=== PATIENT | male | born 1950 | race Caucasian/White ===

== ENCOUNTER 2016-12-24 18:06 | Emergency (ER) | payer MEDICARE ==
[2016-12-24 18:55] LABS: Hematocrit 42.5 % (42.0-52.0); Hemoglobin 14.5 gm/dL (13.5-18.0); Mean Cell Volume 90.4 fl (78-100); Mean Corpuscular Hemoglobin 30.9 pg (27-31); Mean Corpuscular Hgb Conc 34.1 g/dl (32-36); Mean Platelet Volume 9.8 fl (6.0-9.5); Neutrophil # 8.9 K/mm3 (1.3-6.0); Platelet Count 476 K/mm3 (150-450); Red Cell Distribution Width 13.7 % (11.5-14.0); White Blood Count 10.5 K/mm3 (4.0-10.5)
[2016-12-24 18:58] LABS: Prothrombin Time (Patient) 12.1 Seconds (9.4-11.4)
[2016-12-24 19:05] LABS: ALT 27 U/L (19-67); AST 10 U/L (0-48); Albumin * 3.2 gm/dl (3.4-5.0); Alkaline Phosphatase * 72 U/L (50-170); Anion Gap 16.5 mmol/L (6.8-13.8); BUN/Creatinine Ratio 25.9 (9.0-21.6); Bilirubin, Total 0.5 mg/dL (0.0-1.1); Blood Urea Nitrogen 28 mg/dL (6-23); Ca. Corrected For Albumin 9.5 mg/dL (8.4-10.2); Calcium * 9.2 mg/dL (7.9-10.9); Carbon Dioxide 25.3 mmol/L (24-32.6); Chloride 103 mmol/L (97-106); Glucose * 123 mg/dL (70-110); Potassium 3.8 mmol/L (3.4-4.6); Sodium 141 mmol/L (132-142); Total Protein 7.5 gm/dL (6.2-8.2)
[2016-12-24 19:06] LABS: Troponin I Less than 0.017 ng/ml (0.00-0.10)
[2016-12-24 19:12] LABS: INR 1.16 INR (0.90-1.10); Partial Thrombolplastin Time 28.4 Seconds (24-32)
[2016-12-24] MEDS ORDERED: ALBUTEROL SULFATE 2.5 MG/0.5 ML VIAL.NEB IH ONE ×2 (19:29→19:49)
--- NOTE | 2016-12-24 19:30 | ERNOTE ---
Chest Pain/Cardiac HPI Chief Complaint: Chest Pain Time Seen by Provider: 12/24/16 19:23 Source: patient Exam Limitations: no limitations Immunizations: IMMUNIZATION HX Immunizations Up to Date Yes History of Influenza Vaccine Yes Hx Pneumococcal Vaccination Yes Allergies/Adverse Reactions: Allergies No Known Allergies Allergy (Verified 08/05/16 20:27) Home Medications: HOME MEDICATIONS Albuterol Sulfate [Proair Respiclick] 2 puff IH QID PRN 07/14/16 [Last Taken Unknown] Finasteride [Proscar] 5 mg PO DAILY 07/14/16 [Last Taken Unknown] Potassium Bicarbonate/Cit AC [Potassium 25 Meq Tablet Eff] 25 meq PO DAILY 08/05 [Last Taken Unknown] predniSONE [Prednisone] 3 tab PO DAILY #12 tab 12/24/16 [Last Taken Unknown] Narrative: Patient has had chest pain on and off for about two weeks, pain is lower sternal , lasts a few seconds to max a minutes, seems to come on more with exertion. He saw his PCP in [facility] who suggested that he be seen but did not want to go the ER there. He has a history of COPD, still smokes Timing: intermittent Severity/Quality: moderate, pressure Location: central Chest Pain Radiation: no radiation Activities at Onset: activity Modifying Factors - Improves: Present: rest Nitro Today/Relief: no nitro taken today Aspirin Treatment Today: no aspirin today Associated Symptoms: Present: denies symptoms, shortness of breath. Absent: headache, dizziness, heartburn, nausea Prior Chest Pain/Cardiac Workup: Denies: prior chest pain, heart attack Review of Systems - Review of Systems Constitutional: Absent: recent illness, fever ENT: Absent: nose congestion, sore throat Respiratory: Present: See HPI, shortness of breath, cough - occasionally Cardiology: Present: See HPI Gastrointestinal/Abdominal: Absent: nausea, vomiting, diarrhea Genitourinary: Present: no symptoms reported Skin: Absent: rash Neurological: Absent: headache - Patient's Past Medical History Patient History - Medical: No pertinent hx, Other Patient History - Cardiac/Respiratory: Asthma, COPD Patient History - Cancer: No Hx of Cancer Patient History - Surgical Procedures: Other Patient History - Other: None - Social History Living Situations: home Psych History: No pertinent hx Smoking Status: Current every day smoker Cigarettes Packs Per Day: 0.5 - Immunizations Immunizations Up to Date: Yes Hx Pneumococcal Vaccination: Yes History of Influenza Vaccine: Yes Physical Exam - Physical Exam General Appearance: Present: wd/wn, alert, no apparent distress Eye Exam: Normal inspection: bilateral Ears, Nose, Throat: Present: normal pharynx Respiratory: Present: no respiratory distress, decreased breath sounds, wheezing Cardiovascular/Chest: Present: regular rate, rhythm, no murmur Gastrointestinal/Abdominal: Present: nontender, nondistended, soft Extremity Exam: Present: no edema Neurological Exam: Present: alert, oriented, normal mood/affect Skin Exam: Present: normal color, warm/dry ED Progress - Results and Orders Patient's Lab Results:: I have reviewed the patient's lab results. - Vital Signs Patient's Vital Signs:: I have reviewed the patient's vital signs. Vital Signs: Vital Signs 12/24/16 12/24/16 18:16 19:10 Temperature 36.5 C Pulse Rate 77 75 Respiratory 23 H 23 H Rate Blood Pressure 115/73 121/70 O2 Sat by Pulse 96 95 Oximetry - EKG EKG: NSR, unchanged from - 06/2016, other - no acute changes EKG read: Interp. by me - X-Ray X-Ray #1 X-Ray: chest - hyperinflated, chronic, no acute changes Interpretation: Interp. by me - Progress/Reassessment Chief Complaint: Chest Pain Progress Note-Subjective: 12/24/16 20:05 feeling better after neb treatment, no chest pain wheezing resolved, improved lung movement discussed result Departure - Departure Clinical Impression: COPD exacerbation Disposition: Home self-care Condition: Good Instructions: Chronic Obstructive Pulmonary Disease Exacerbation, [id number] Additional Instructions: follow up with your doctor next week, use the nebulizer as needed for shortness of breath and wheezing Prescriptions: predniSONE [Prednisone] 3 tab PO DAILY #12 tab
[2016-12-24] MEDS ORDERED: predniSONE 20 MG TABLET PO ONE (19:42)
[2016-12-24] MEDS ORDERED: predniSONE 20 MG TABLET ONE (19:49)
[2016-12-24 21:29] VITALS: BP 101/68
== END 2016-12-24 20:09 | disposition home or self-care (01) ==
LOC: ER 18:06
DX: J44.1 Chronic obstructive pulmonary disease with (acute) exacerbation (principal); R07.9 Chest pain, unspecified; F17.210 Nicotine dependence, cigarettes, uncomplicated